=== PATIENT | female | born 1965 | race Hispanic/Latino ===

== ENCOUNTER 2017-12-12 20:13 | Emergency (ER) | payer OTHER ==
[~2017-12-12] VITALS: Ht 149.9 cm; Wt 68.0 kg
--- OUTSIDE RECORDS SUMMARY | 2017-12-12 20:15 | XMS REPORT | Clinical Summary ---
Author Author [facility] Address Unknown Phone Unavailable Care Team Providers Care Supervisor Sleeping Bag Department Name Role Phone Parveen Ibarra MD PCP Allergies Not on File Current Medications Prescription Sig. Disp. Refills Start End Date Status Date sodium,potassium,mag Use as per Dr. Lawson 354 mL 0 04/19/20 Active sulfates (SUPREP BOWEL Bowser pre-printed 17 PREP KIT) 17.5-3.13-1.6 instructions gram recon solnIndications: Screening for colon cancer Active Problems Not on file Encounters Date Type Specialty Care Team Description 06/09/2017 Telephone Gastroenterology Charisma Dupree LVN 06/01/2017 Lab Lab Lulu Bowser MD 06/01/2017 Documentation Gastroenterology Lulu Bowser MD Colonoscopy 05/27/2017 Telephone Gastroenterology Justen Mclean MA 04/25/2017 Telephone GastroenterLulu Ding MD 04/19/2017 Refill Gastroenterology Charisma Dupree LVN Screening for colon cancer (Primary Dx) 04/07/2017 Telephone Lulu Pablo MD 03/01/2017 Telephone Lulu Pablo MD 02/25/2017 Telephone Lulu Pablo MD 02/09/2017 Telephone Gastroenterology Lulu Bowser MD after 12/11/2016 Social History Tobacco Use Types Packs/Day Years Used Date Never Assessed Sex Assigned at Date Recorded Not on file Last Filed Vital Signs Not on file Plan of Treatment Health Maintenance Due Date Last Done Comments CERVICAL CANCER SCREENING 1987 BREAST CANCER SCREENING 2016 SHINGRIX VACCINE (#1) 2016 INFLUENZA VACCINE 02/08/2018 02/28/2017 COLON CANCER SCREENING 06/01/2022 06/01/2017 Results * Surgical pathology request (06/01/2017 2:39 PM) Component Value Ref Range Surgical pathology report See link below for PDF Lab Report Result status This is Final Report to [id number] Specimen Performing Laboratory [facility]PART[facility] OF PATHOLOGY [facility] GENOMIC MEDICINE [address] [place] [id number] after 12/11/2016 Insurance Payer Benefit Subscriber ID Type Phone Address Plan / Group KEYUR BAER xxxxxxxxxxx [place] [address]
[2017-12-12 22:14] VITALS: BP 128/76
== END 2017-12-12 22:17 | disposition home or self-care (01) ==
LOC: FSED 20:13
DX: R10.9 Unspecified abdominal pain (principal)
CPT/HCPCS: 80048; 81003; 85025; 99283